=== PATIENT | male | born 1990 | race Caucasian/White ===

== ENCOUNTER → 2020-11-23 15:15 | Outpatient (BNVA) | payer OTHER, SELFPAY | PROVIDERS: PCP Family Medicine; Visit Provider Psychiatry & Neurology Psychiatry | DX: F10.20 Alcohol dependence, uncomplicated (principal); F33.2 Major depressive disorder, recurrent severe without psychotic features; F41.1 Generalized anxiety disorder; F42.9 Obsessive-compulsive disorder, unspecified; F95.2 Tourette's disorder | CPT/HCPCS: 80053; 84443 ==

== ENCOUNTER 2022-09-04 08:18 | Day surgery (SDC) | payer MEDICAID, SELFPAY ==
[2022-09-02 11:09] VITALS: BMI 29.3
[2022-09-04 08:55] VITALS: BP 151/101; PULSE 123; RESP 22; TEMP 36.1; O2SAT 97
--- NOTE | 2022-09-04 09:00 | ANES.PREANE2 ---
Pre-Anesthetic Assessment Height/Weight: Height 1.71 m Weight 86.183 kg Operation Date: 09/04/22 10:00 Proposed Procedures p [id number] colon Z12.11(Not Applicable) - Colby Tyler DO Familial anesthetic complications: Screening Was Beta Jonathan taken within 24 hours: N/A (Last took propranolol 2 days ago) Was Clonidine taken within 24 hours: N/A Last intake: Eat 09/02/22 Drink 09/03/22 Social Tobacco (Marijuana daily) and No alcohol 1 pack(s) per day Exam alert, oriented x 3, clear to auscultation bilaterally and regular rate & rhythm Airway Submandibular: within normal limits Cervical ROM: within normal limits Mallampati: Class III Dentition: full History/ROS No significant history except as noted and No significant complaints Pulmonary Exertional Dyspnea and Sleep Apnea (No CPAP, sleep study scheduled later this month) CV/HEM Hypertension None reported Hepatic None reported GI Gastroesophageal Reflux Disease (None this am) Metabolic Diabetes Mellitus [facility] [place] None reported Neuropsych Anxiety and Depression Anesthetic Plan ASA status: 2 Anesthesia: Anesthesia Evaluation, General and MAC Risk of > 500 ml blood loss (7ml/kg in children): No Medications/Allergies Home Medications Medication Instructions Recorded Confirmed Last Taken Type metformin 500 mg tablet 500 mg PO DAILY 09/14/21 09/04/22 09/02/22 History doxycycline hyclate 100 mg tablet 100 mg PO BID 7 days #14 tabs 12/05/21 09/04/22 09/02/22 Rx losartan 25 mg tablet 25 mg PO DAILY 02/26/22 09/04/22 09/02/22 History amlodipine 5 mg tablet 5 mg PO DAILY 07/02/22 09/04/22 09/02/22 History aripiprazole 10 mg tablet (Abilify) 10 mg PO DAILY #30 tabs 07/22/22 09/04/22 09/02/22 Rx buspirone 10 mg tablet 20 mg PO TID #180 tabs 07/22/22 09/04/22 09/02/22 Rx fluphenazine HCl 1 mg tablet 3 mg PO BID #180 tabs 07/22/22 09/04/22 09/03/22 Rx gabapentin 600 mg tablet 600 mg PO TID #90 tabs 07/22/22 09/04/22 09/02/22 Rx prazosin 5 mg capsule 5 mg PO .HS #30 caps 01/16/23 03/01/23 02/28/23 Rx propranolol 20 mg tablet 20 mg PO BID #60 tabs 07/22/22 09/04/22 09/02/22 Rx clomipramine 75 mg capsule 225 mg PO .HS 08/14/22 09/04/22 09/03/22 History (Anafranil) Allergies Allergy/AdvReac Type Severity Reaction Status Date / Time No Known Allergies Allergy Verified 08/14/22 09:00 [facility] Anesthesia Medical History (Updated 09/04/22 @ 10:38 by Colby Tyler DO) Family hx of colon cancer Psychiatric care Surgical History No history of previous surgery Family History Father Cancer colon cancer Social History Smoking and tobacco status: current every day smoker cigarettes Packs smoked per day: 1 Years cigarettes smoked: 16 Quit status (tobacco): not considering quitting Second hand smoke exposure: No Smoking risk assessment/counseling performed?: No Alcohol intake: former Desire information about alcohol rehabilitation?: No Counseling given: No Desire information about substance/drug rehabilitation?: No Counseling given: No Data Anesthesia Cardiac Studies: No Data to Display
[2022-09-04] MEDS: sodium chloride 0.9% 1,000 ML 30 ML IV ×2 (09:11→10:39)
[2022-09-04 09:28] LABS: Glucose Point of Care 154 mg/dL (70-110)
--- NOTE | 2022-09-04 10:38 | PM.HP ---
Providers/Chief Complaint Primary Care Provider: Shante Recio DO Chief Complaint: encounter for screening History of Present Illness Colby Edmond is a 32 year old male here for a screening colonoscopy Medications/Allergies Home Medications Medication Instructions Recorded Confirmed Last Taken Type metformin 500 mg tablet 500 mg PO DAILY 09/14/21 09/04/22 09/02/22 History doxycycline hyclate 100 mg tablet 100 mg PO BID 7 days #14 tabs 12/05/21 09/04/22 09/02/22 Rx losartan 25 mg tablet 25 mg PO DAILY 02/26/22 09/04/22 09/02/22 History amlodipine 5 mg tablet 5 mg PO DAILY 07/02/22 09/04/22 09/02/22 History aripiprazole 10 mg tablet (Abilify) 10 mg PO DAILY #30 tabs 07/22/22 09/04/22 09/02/22 Rx buspirone 10 mg tablet 20 mg PO TID #180 tabs 07/22/22 09/04/22 09/02/22 Rx fluphenazine HCl 1 mg tablet 3 mg PO BID #180 tabs 07/22/22 09/04/22 09/03/22 Rx gabapentin 600 mg tablet 600 mg PO TID #90 tabs 07/22/22 09/04/22 09/02/22 Rx prazosin 5 mg capsule 5 mg PO .HS #30 caps 07/22/22 09/04/22 09/03/22 Rx propranolol 20 mg tablet 20 mg PO BID #60 tabs 07/22/22 09/04/22 09/02/22 Rx clomipramine 75 mg capsule 225 mg PO .HS 08/14/22 09/04/22 09/03/22 History (Anafranil) Allergies Allergy/AdvReac Type Severity Reaction Status Date / Time No Known Allergies Allergy Verified 08/14/22 09:00 PFSH Acute PFSH: Medical History (Updated 09/04/22 @ 10:38 by Colby Tyler DO) Family hx of colon cancer Psychiatric care Surgical History No history of previous surgery Family History Father Cancer colon cancer Social History Smoking and tobacco status: current every day smoker cigarettes Packs smoked per day: 1 Years cigarettes smoked: 16 Quit status (tobacco): not considering quitting Second hand smoke exposure: No Smoking risk assessment/counseling performed?: No Alcohol intake: former Desire information about alcohol rehabilitation?: No Counseling given: No Desire information about substance/drug rehabilitation?: No Counseling given: No Vitals/I&O/Wt Last Vital Signs Temp 97.0 F L 09/04/22 08:55 Pulse 123 H 09/04/22 08:55 Resp 22 H 09/04/22 08:55 BP 151/101 09/04/22 08:55 Pulse Ox 97 09/04/22 08:55 O2 Del Method 09/04/22 08:55 09/03/22 09/04/22 09/04/22 22:59 06:59 14:59 Intake Total 1000 / 1000 Balance 1000 / 1000 Weight last 48 hrs Weight 190 lb A&P Assessment and plan (1) Family hx of colon cancer: Plan Screening colonoscopy Attestations Medical Necessity Statement*: Home Coding Level of Care Code Acute Code for Chg Fwd Diagnoses Family hx of colon cancer Z80.0
[2022-09-04 10:59] VITALS: BP 109/74; PULSE 99; RESP 18; TEMP 36.6; O2SAT 92
[2022-09-04 11:10] VITALS: BP 108/77; PULSE 94; RESP 18; TEMP 36.6; O2SAT 99
--- NOTE | 2022-09-04 12:57 | ANE.PACU2 ---
Inpatient post-anesthesia follow up: Airway intact: Yes Vital signs: Temperature 97.8 F Pulse Rate 94 Respiratory Rate 18 Blood Pressure 108/77 Pulse Oximetry 99 Oxygen Delivery Me thod Room Air Oxygen Flow Rate Fraction of Inspir ed Oxygen Hydration adequate: Yes Nausea and vomiting: No Pain level: 2 Mental status: Baseline
== END 2022-09-04 11:34 | disposition home or self-care (01) ==
PROVIDERS: PCP Family Medicine; Visit Provider Surgery
PROC: 0DJD8ZZ Inspection of Lower Intestinal Tract, Via Natural or Artificial Opening Endoscopic (ICD-10-PCS; CPT 45378; principal; 2022-09-04 10:00)
DX: Z12.11 Encounter for screening for malignant neoplasm of colon (principal); Z80.0 Family history of malignant neoplasm of digestive organs; F17.210 Nicotine dependence, cigarettes, uncomplicated; I10 Essential (primary) hypertension; K21.9 Gastro-esophageal reflux disease without esophagitis; E11.9 Type 2 diabetes mellitus without complications; Z79.84 Long term (current) use of oral hypoglycemic drugs
CPT/HCPCS: 36416; 45378; 82962; J2250; J2704; J7030

== ENCOUNTER → 2023-07-01 16:09 | Outpatient (BNVA) | payer OTHER, SELFPAY | PROVIDERS: PCP Family Medicine; Visit Provider Psychiatry & Neurology Psychiatry | DX: F33.2 Major depressive disorder, recurrent severe without psychotic features (principal); F41.1 Generalized anxiety disorder; F42.9 Obsessive-compulsive disorder, unspecified; F95.2 Tourette's disorder; F10.20 Alcohol dependence, uncomplicated; F12.20 Cannabis dependence, uncomplicated; Z79.899 Other long term (current) drug therapy | CPT/HCPCS: 80053; 80061; 83036; 83721; 84443 ==

== ENCOUNTER → 2025-01-20 16:17 | Outpatient (BNVA) | payer OTHER, SELFPAY | PROVIDERS: PCP Family Medicine; Visit Provider Psychiatry & Neurology Psychiatry | DX: F33.2 Major depressive disorder, recurrent severe without psychotic features (principal); F41.1 Generalized anxiety disorder; F42.9 Obsessive-compulsive disorder, unspecified; Z79.899 Other long term (current) drug therapy | CPT/HCPCS: 80053; 80061; 83036; 84443; 85025 ==